=== PATIENT | female | born 1935 | race Hispanic/Latino ===

== ENCOUNTER 2017-07-26 12:12 | Emergency (ER) | payer MEDICARE ==
[2017-07-26] MEDS ORDERED: ASPIRIN PO ONE (12:22)
[2017-07-26 13:12] LABS: Basophils % (Auto) 0.7 % (0.0-1.8); Eosinophils % (Auto) 0.5 % (0.0-4.3); Hematocrit 44.9 % (30.3-42.9); Hemoglobin 14.7 gm/dl (10.1-14.3); Lymphocytes # (Auto) 1.5 K/mm3 (1.2-5.4); Lymphocytes % (Auto) 22.1 % (13.4-35.0); Mean Corpuscular HGB Conc 33 % (30-34); Mean Corpuscular Hemoglobin 27 pg (28-32); Mean Corpuscular Volume 84 fl (79-97); Monocytes # (Auto) 0.5 K/mm3 (0.0-0.8); Monocytes % (Auto) 6.7 % (0.0-7.3); Platelet Count 196 K/mm3 (140-440); Red Blood Count 5.36 M/mm3 (3.65-5.03)
[2017-07-26 13:24] LABS: BUN/Creatinine Ratio 19; Blood Urea Nitrogen 13 mg/dL (7-17); Calcium 9.3 mg/dL (8.4-10.2); Hemolysis Index 8
[2017-07-26] MEDS ORDERED: ZOFRAN IV ONE (20:08)
[2017-07-26] MEDS ORDERED: NACL 0.9% 500 ML 500 ML IV ONE (20:08)
[2017-07-26] MEDS ORDERED: BENTYL IM ONE (20:08)
[2017-07-26] MEDS ORDERED: CARAFATE PO ONE (20:08)
--- NOTE | 2017-07-26 20:16 | Emergency Department Report ---
ED General Adult HPI - General Chief complaint: Nausea/Vomiting/Diarrhea Stated complaint: NAUSEA Time Seen by Provider: 07/26/17 19:49 Source: patient, RN notes reviewed Mode of arrival: Ambulatory Limitations: No Limitations - History of Present Illness Initial comments: This is an 82-year-old female who is previously unknown to this provider. Her primary care doctor is Dr. Burak Delatorre Past medical history includes hypothyroidism, cholecystectomy, hysterectomy. Patient presents to the ER with a complaint of weakness. Patient reports that for the past 3-4 days, she's been having nausea, dry heaving. Her symptoms started on Saturday. They're basically painless. She also describes 2 episodes of nonbloody, nonbilious diarrhea. She denies chest pain but admits to chest discomfort. Patient reports that she thinks that she has a "stomach bug." There are no DVT or pulmonary embolus risk factors. No recent aspirin use. No recent cocaine use. Patient reports that she is spitting up" some yellow stuff" and having some "yellow diarrhea." To me she denies chest pain, diaphoresis, shortness of breath. -: Gradual Location: chest, abdomen Radiation: abdomen Quality: aching Consistency: intermittent Improves with: none Worsens with: none Associated Symptoms: cough, loss of appetite, malaise, nausea/vomiting, weakness. denies: confusion, diaphoresis, fever/chills, headaches, rash, seizure, shortness of breath, syncope - Related Data Previous Rx's Medication Instructions Recorded Last Taken Type Acetaminophen [Tylenol Arthritis] 650 mg PO Q6HR PRN #30 tablet.er 07/26/17 Unknown Rx Dicyclomine [Bentyl] 10 mg PO QID PRN #20 capsule 07/26/17 Unknown Rx Ondansetron [Zofran Odt] 4 mg PO Q8HR PRN #20 tab.rapdis 07/26/17 Unknown Rx Allergies Allergy/AdvReac Type Severity Reaction Status Date / Time Sulfa (Sulfonamide Allergy Rash Verified 07/26/17 12:20 Antibiotics) metronidazole [From Flagyl] AdvReac Unknown Verified 07/26/17 12:21 ED Review of Systems ROS: Stated complaint: NAUSEA Other details as noted in HPI Comment: All other systems reviewed and negative ED Past Medical Hx - Past Medical History Additional medical history: Diverticulitis - Surgical History Hx Cholecystectomy: Yes - Social History Smoking Status: Never Smoker Substance Use Type: None - Medications Home Medications: Home Medications Medication Instructions Recorded Confirmed Last Taken Type Acetaminophen [Tylenol Arthritis] 650 mg PO Q6HR PRN #30 tablet.er 07/26/17 Unknown Rx Dicyclomine [Bentyl] 10 mg PO QID PRN #20 capsule 07/26/17 Unknown Rx Ondansetron [Zofran Odt] 4 mg PO Q8HR PRN #20 tab.rapdis 07/26/17 Unknown Rx ED Physical Exam - General Limitations: No Limitations General appearance: alert, in no apparent distress - Head Head exam: Present: atraumatic, normocephalic - Eye Eye exam: Present: normal appearance, EOMI. Absent: nystagmus - ENT ENT exam: Present: normal exam, normal orophraynx, mucous membranes moist, normal external ear exam - Neck Neck exam: Present: normal inspection, full ROM - Respiratory Respiratory exam: Present: normal lung sounds bilaterally. Absent: respiratory distress, chest wall tenderness - Cardiovascular Cardiovascular Exam: Present: normal rhythm, bradycardia, normal heart sounds. Absent: systolic murmur, diastolic murmur, rubs, gallop - GI/Abdominal GI/Abdominal exam: Present: soft, normal bowel sounds. Absent: distended, tenderness, guarding, rebound, rigid, pulsatile mass - Extremities Exam Extremities exam: Present: normal inspection, full ROM, normal capillary refill. Absent: pedal edema, joint swelling, calf tenderness - Back Exam Back exam: Present: normal inspection, full ROM. Absent: tenderness, CVA tenderness (R), paraspinal tenderness, vertebral tenderness - Neurological Exam Neurological exam: Present: alert, oriented X3, CN II-XII intact, normal gait, other (Extraocular movements intact. Tongue midline. No facial droop. Facial sensation intact to light touch in the V1, V2, V3 distribution bilaterally. 5 and 5 strength in 4 extremities.. Sensation is intact to light touch in 4 extremities.). Absent: motor sensory deficit - Psychiatric Psychiatric exam: Present: normal affect, normal mood - Skin Skin exam: Present: warm, dry, intact, normal color. Absent: rash ED Course Vital Signs 07/26/17 07/26/17 07/26/17 12:16 16:07 16:16 Temperature 97.8 F Pulse Rate 72 86 89 Respiratory 18 19 16 Rate Blood Pressure 152/65 123/81 123/81 O2 Sat by Pulse 98 93 95 Oximetry 07/26/17 07/26/17 07/26/17 16:30 16:46 17:00 Temperature Pulse Rate 87 90 93 H Respiratory 16 18 15 Rate Blood Pressure 123/81 123/81 123/81 O2 Sat by Pulse 97 96 96 Oximetry 07/26/17 07/26/17 07/26/17 17:16 17:30 17:46 Temperature Pulse Rate 86 85 87 Respiratory 17 18 11 L Rate Blood Pressure 147/85 147/85 147/85 O2 Sat by Pulse 98 96 97 Oximetry 07/26/17 07/26/17 07/26/17 18:00 18:16 18:30 Temperature Pulse Rate 90 87 82 Respiratory 14 17 18 Rate Blood Pressure 147/85 113/74 113/74 O2 Sat by Pulse 98 98 96 Oximetry 07/26/17 07/26/17 07/26/17 19:52 20:00 20:01 Temperature Pulse Rate 48 L 59 L Respiratory 12 13 18 Rate Blood Pressure 113/74 113/74 O2 Sat by Pulse 99 100 98 Oximetry 07/26/17 07/26/17 07/26/17 20:16 20:56 21:00 Temperature Pulse Rate 59 L Respiratory 13 Rate Blood Pressure 160/47 160/47 160/47 O2 Sat by Pulse 99 99 99 Oximetry 07/26/17 07/26/17 21:16 21:30 Temperature Pulse Rate Respiratory Rate Blood Pressure 160/47 160/47 O2 Sat by Pulse 100 100 Oximetry - Reevaluation(s) Reevaluation #1: 07/26/17 21:12 Differential diagnosis, including but not limited to: Enteritis, pneumonia, urinary tract infection, intracranial hemorrhage, pulmonary embolus, acute coronary syndrome, pancreatitis, obstruction, enteritis, colitis, diverticulitis Aspirin and plan: 82-year-old female, troponin negative 3, unremarkable EKG, no pulmonary embolus or DVT risk factors, low risk by well's criteria, low risk by Godoy's score, low risk by LYNNETTE score with multiple nonspecific symptoms. She is afebrile with reassuring vital signs, has a normal neurologic examination. Laboratory studies so far unremarkable with the exception of hemoconcentration, dehydration. She does not offer obstructive or irritative urinary symptoms. She will be treated supportively. CT scan of the chest, abdomen, pelvis pending. CT scan of the brain is pending. We will reassess. Reevaluation #2: 07/26/17 21:45 CT scan demonstrates nonspecific bony lesions. No acute surgical processes noted. Pneumonia and/or pulmonary embolus not noted. No signs remained stable , patient walks with a steady gait. The patient will be given copies of her CT scan reports, and she should follow-up with her outpatient primary care doctor for further evaluation to exclude cancer, tumor, malignancy. ED Medical Decision Making - Lab Data Result diagrams: 07/26/17 13:01 07/26/17 13:01 Vital Signs 07/26/17 07/26/17 12:16 20:01 Temperature 97.8 F Pulse Rate 72 Respiratory 18 18 Rate Blood Pressure 152/65 O2 Sat by Pulse 98 98 Oximetry Lab Results 07/26/17 07/26/17 07/26/17 Range/Units 13:01 13:01 15:24 WBC 6.8 (4.5-11.0) K/mm3 RBC 5.36 H (3.65-5.03) M/mm3 Hgb 14.7 H (10.1-14.3) gm/dl Hct 44.9 H (30.3-42.9) % MCV 84 (79-97) fl MCH 27 L (28-32) pg MCHC 33 (30-34) % RDW 14.0 (13.2-15.2) % Plt Count 196 (140-440) K/mm3 Lymph % (Auto) 22.1 (13.4-35.0) % [place] % (Auto) 6.7 (0.0-7.3) % Eos % (Auto) 0.5 (0.0-4.3) % Baso % (Auto) 0.7 (0.0-1.8) % Lymph # 1.5 (1.2-5.4) K/mm3 [place] # 0.5 (0.0-0.8) K/mm3 Eos # 0.0 (0.0-0.4) K/mm3 Baso # 0.0 (0.0-0.1) K/mm3 Seg Neutrophils % 70.0 (40.0-70.0) % Seg Neutrophils # 4.7 (1.8-7.7) K/mm3 Sodium 140 (137-145) mmol/L Potassium 4.1 (3.6-5.0) mmol/L Chloride 100.7 (98-107) mmol/L Carbon Dioxide 23 (22-30) mmol/L Anion Gap 20 mmol/L BUN 13 (7-17) mg/dL Creatinine 0.7 (0.7-1.2) mg/dL Estimated GFR > 60 ml/min BUN/Creatinine Ratio 19 % Glucose 117 H (65-100) mg/dL Calcium 9.3 (8.4-10.2) mg/dL Troponin T < 0.010 < 0.010 (0.00-0.029) ng/mL Urine Color (Yellow) Urine Turbidity (Clear) Urine pH (5.0-7.0) Ur Specific [place] (1.003-1.030) Urine Protein (Negative) mg/dL Urine Glucose (UA) (Negative) mg/dL Urine Ketones (Negative) mg/dL Urine Blood (Negative) Urine Nitrite (Negative) Urine Bilirubin (Negative) Urine Urobilinogen (<2.0) mg/dL Ur Leukocyte Esterase (Negative) Urine WBC (Auto) (0.0-6.0) /HPF Urine RBC (Auto) (0.0-6.0) /HPF U Epithel Cells (Auto) (0-13.0) /HPF Urine Bacteria (Auto) (Negative) /HPF Ur Transition Epith Cell /HPF Urine Mucus /HPF 07/26/17 07/26/17 Range/Units 18:51 19:55 WBC (4.5-11.0) K/mm3 RBC (3.65-5.03) M/mm3 Hgb (10.1-14.3) gm/dl Hct (30.3-42.9) % MCV (79-97) fl MCH (28-32) pg MCHC (30-34) % RDW (13.2-15.2) % Plt Count (140-440) K/mm3 Lymph % (Auto) (13.4-35.0) % [place] % (Auto) (0.0-7.3) % Eos % (Auto) (0.0-4.3) % Baso % (Auto) (0.0-1.8) % Lymph # (1.2-5.4) K/mm3 [place] # (0.0-0.8) K/mm3 Eos # (0.0-0.4) K/mm3 Baso # (0.0-0.1) K/mm3 Seg Neutrophils % (40.0-70.0) % Seg Neutrophils # (1.8-7.7) K/mm3 Sodium (137-145) mmol/L Potassium (3.6-5.0) mmol/L Chloride (98-107) mmol/L Carbon Dioxide (22-30) mmol/L Anion Gap mmol/L BUN (7-17) mg/dL Creatinine (0.7-1.2) mg/dL Estimated GFR ml/min BUN/Creatinine Ratio % Glucose (65-100) mg/dL Calcium (8.4-10.2) mg/dL Troponin T < 0.010 (0.00-0.029) ng/mL Urine Color Yellow (Yellow) Urine Turbidity Clear (Clear) Urine pH 5.0 (5.0-7.0) Ur Specific [place] 1.023 (1.003-1.030) Urine Protein <15 mg/dl (Negative) mg/dL Urine Glucose (UA) Neg (Negative) mg/dL Urine Ketones 80 (Negative) mg/dL Urine Blood Neg (Negative) Urine Nitrite Neg (Negative) Urine Bilirubin Neg (Negative) Urine Urobilinogen < 2.0 (<2.0) mg/dL Ur Leukocyte Esterase Mod (Negative) Urine WBC (Auto) 6.0 (0.0-6.0) /HPF Urine RBC (Auto) 8.0 (0.0-6.0) /HPF U Epithel Cells (Auto) 5.0 (0-13.0) /HPF Urine Bacteria (Auto) 1+ (Negative) /HPF Ur Transition Epith Cell 1 /HPF Urine Mucus 3+ /HPF - EKG Data -: EKG Interpreted by Me EKG shows normal: sinus rhythm Rate: bradycardia - EKG Data When compared to previous EKG there are: previous EKG unavailable 07/26/17 21:12 EKG #1 demonstrates sinus bradycardia, borderline left axis deviation, not morphologically consistent with STEMI. Repeat EKG is unchanged. Demonstrates persistent sinus bradycardia. - Radiology Data Radiology results: pending Critical care attestation.: If time is entered above; I have spent that time in minutes in the direct care of this critically ill patient, excluding procedure time. ED Disposition Clinical Impression: History of nausea and vomiting Disposition: DC-01 TO HOME OR SELFCARE Is pt being admited?: No Does the pt Need Aspirin: No Condition: Good Instructions: Acute Nausea and Vomiting (ED) Additional Instructions: Take the medications as needed/directed. CT scan demonstrated numerous nonspecific findings which need to be followed up and addressed by her primary care doctor. Specific, the CT scan demonstrated bony lesions, suggestive of cancer, tumor, malignancy. Follow-up with her primary care doctor or hematology /oncology physician within the next 2-3 weeks. Follow-up with a technical services analyst within the next 1 week. Return to the ER right away with new pain, worsened pain, migration of pain, fevers, chills, lethargy, irritability, projectile vomiting, change in mental status, confusion, inability to tolerate liquid feeds. Referrals: CORBIN HOOPER MD [Primary Care Provider] - 3-5 Days BRITTNEY FLORIAN MD [Staff Physician] - 3-5 Days
[2017-07-26 20:27] LABS: Bacteria,Urine 1+ /HPF (Negative); Bilirubin,Urine NEG (Negative); Blood,Urine NEG (Negative); Color,Urine Yellow (Yellow); Mucus,Urine 3+ /HPF; Protein,Urine <15 mg/dL mg/dL (Negative); Urobilinogen,Urine < 2.0 mg/dL (<2.0)
--- NOTE | 2017-07-26 21:14 | Cat Scan Report ---
FINAL REPORT PROCEDURE: CT ANGIO CHEST TECHNIQUE: Computerized tomographic angiography of the chest was performed after the IV injection of iodinated nonionic contrast including image processing. The image data was postprocessed using 2-dimensional multiplanar reformatted (MPR) and 3-dimensional (MIP and/or volume rendered) techniques. HISTORY: cp dizzy near syncope COMPARISON: No prior studies are available for comparison. FINDINGS: Bilateral pulmonary arteries and their branches demonstrate normal opacification without filling defects. Bilateral lungs and pleural spaces are clear. Aorta is of normal caliber without evidence of dissection or aneurysm formation. Benign-appearing calcifications are noted in the thyroid. Hilar structures are within normal limits. A mildly enlarged lymph node measuring 1.2 centimeters in short axis is identified in the aortopulmonic window. There is diffusely increased bone density. A lytic lesion measuring 0.8 centimeters is noted involving T8 vertebral body. IMPRESSION: No evidence of pulmonary embolism No acute pulmonary process Mild degree mediastinal lymphadenopathy Diffusely increased bone density is suspicious for etiologies such as metastatic disease versus marrow replacing disorder. Clinical correlation is recommended. 0.8 centimeter lytic lesion involving T8 vertebral body may be further evaluated using a bone scan to rule out a metastatic disease.
--- NOTE | 2017-07-26 21:15 | Cat Scan Report ---
FINAL REPORT PROCEDURE: CT HEAD/BRAIN WO CON TECHNIQUE: Computerized tomography of the head was performed without contrast material. HISTORY: dizzy near syncope COMPARISON: No prior studies are available for comparison. FINDINGS: Skull and scalp: Normal. Paranasal sinuses: Normal. Ventricles and subarachnoid spaces: Are prominent consistent with cerebral atrophy appropriate for patient's age.. Cerebrum: No evidence of hemorrhage, acute infarction or mass . Cerebellum and brainstem: No evidence of hemorrhage, acute infarction or mass. Vasculature: Normal. Comments: None. IMPRESSION: No acute intracranial abnormality
[2017-07-26 21:31] LABS: Alanine Aminotransferase 17 units/L (7-56); Albumin 4.3 g/dL (3.9-5); Lipase 23 units/L (13-60)
[2017-07-26 21:32] LABS: Bilirubin,Direct < 0.2 mg/dL (0-0.2)
[2017-07-26 21:39] VITALS: BP 160/47
--- NOTE | 2017-07-26 21:42 | Cat Scan Report ---
FINAL REPORT PROCEDURE: CT ABDOMEN PELVIS W CON TECHNIQUE: Computerized axial tomography of the abdomen and pelvis was performed after the IV injection of iodinated nonionic contrast. HISTORY: abd pain n/n/d COMPARISON: No prior studies are available for comparison. FINDINGS: Liver, spleen, pancreas and right adrenal gland are within normal limits. Left adrenal demonstrates a hypo enhancing nodule measuring 9 x 7 millimeters. Well-defined simple cysts are noted in the left kidney largest measuring 2.8 centimeters located in the midpole left kidney. There are 2 small calculi in the lower portion left kidney measuring about 3-4 millimeters without any obstructive uropathy. Aorta is of normal caliber. There is no free fluid or free air. Status post cholecystectomy. Small bowel loops are within normal limits. Multiple colonic diverticula are noted without evidence of diverticulitis. Appendix is normal. 1.1 centimeter lytic lesion is noted in the left hemisacrum. Moderate degree degenerative changes are noted involving the lumbar spine. There is ink diffusely increased density of the bony structures. IMPRESSION: No acute intra-abdominal or pelvic pathology A small hypo enhancing nodule is noted in the left adrenal. This is a nonspecific nodule and may be further evaluated using MRI. Small nonobstructive left renal calculi Diffusely increased bone density may represent metastatic disease versus marrow infiltrative disorder. 1.1 centimeter lytic lesion is noted in the left hemisacrum. Bone scan may be recommended.
== END 2017-07-26 23:02 | disposition home or self-care (01) ==
LOC: ED 12:12
DX: R11.2 Nausea with vomiting, unspecified (principal); R19.7 Diarrhea, unspecified; R53.81 Other malaise; R63.0 Anorexia; R05 Cough; E03.9 Hypothyroidism, unspecified; R10.9 Unspecified abdominal pain; Z90.710 Acquired absence of both cervix and uterus; Z90.49 Acquired absence of other specified parts of digestive tract; Z88.2 Allergy status to sulfonamides; Z88.8 Allergy status to other drugs, medicaments and biological substances
CPT/HCPCS: 36415; 70450; 71275; 74177; 80048; 80074; 81001; 83690; 84484; 85025; 93005; 93010; 96374; 99284; J0500; J2405; J7040; Q9967

== ENCOUNTER 2018-05-23 09:38 | Emergency (ER) | payer MEDICARE ==
--- NOTE | 2018-05-23 10:50 | Emergency Department Report ---
HPI - General Chief Complaint: Dyspnea/Respdistress Time Seen by Provider: 05/23/18 10:25 - HPI HPI: 82-year-old female presents to the emergency department from home with a complaint of some dizziness, nausea without vomiting, shortness of breath, that started while the patient was taking a shower this morning. She says "my arms felt very heavy and weak and I felt like I was going to pass out" but she did not have any syncopal episodes. She has a past medical history of hypothyroidism. Her primary care physician is a Dr. Bell. She denies any headache, fever, vision change, slurred speech, chest pain, or any other acute process. No recent travel or sick contacts at home. ED Past Medical Hx - Past Medical History Additional medical history: Diverticulitis, hypothyroidsm - Surgical History Hx Cholecystectomy: Yes - Social History Smoking Status: Never Smoker Substance Use Type: None - Medications Home Medications: Home Medications Medication Instructions Recorded Confirmed Last Taken Type Acetaminophen [Tylenol Arthritis] 650 mg PO Q6HR PRN #30 tablet.er 07/26/17 Unknown Rx Dicyclomine [Bentyl] 10 mg PO QID PRN #20 capsule 07/26/17 Unknown Rx Ondansetron [Zofran Odt] 4 mg PO Q8HR PRN #20 tab.rapdis 07/26/17 Unknown Rx ED Review of Systems ROS: Stated complaint: N/V Other details as noted in HPI Constitutional: weakness. denies: fever Eyes: denies: eye pain, vision change ENT: denies: ear pain, throat pain Respiratory: denies: cough, shortness of breath Cardiovascular: denies: chest pain, palpitations Gastrointestinal: nausea. denies: abdominal pain, vomiting Genitourinary: denies: dysuria, discharge Musculoskeletal: denies: back pain, arthralgia Skin: denies: rash, change in color Neurological: weakness, other (dizziness) Physical Exam - Physical Exam Vital Signs: Vital Signs 05/23/18 10:03 Temperature 97.7 F Pulse Rate 64 Respiratory 12 Rate Blood Pressure 170/61 [Right] O2 Sat by Pulse 98 Oximetry Physical Exam: GENERAL: The patient is well-developed well-nourished. HEENT: Normocephalic. Atraumatic. Patient has moist mucous membranes. EYES: Extraocular motions are intact. Pupils are equal and reactive to light bilaterally. There is some fatigable horizontal nystagmus. NECK: Supple. Trachea is midline. CHEST/LUNGS: Clear to auscultation. There is no respiratory distress noted. HEART/CARDIOVASCULAR: Regular. There is no tachycardia. There is no obvious murmur. ABDOMEN: Abdomen is soft, nontender. Patient has normal bowel sounds. There is no abdominal distention. SKIN: Skin is warm and dry. NEURO: The patient is awake, alert, and oriented. The patient is cooperative. The patient has no focal neurologic deficits. The patient has normal speech. Cranial nerves II through XII grossly intact. No pronator drift. No dysmetria. No facial asymmetry. MUSCULOSKELETAL: There is no tenderness or deformity. There is no limitation range of motion. There is no evidence of acute injury. ED Course Vital Signs 05/23/18 10:03 Temperature 97.7 F Pulse Rate 64 Respiratory 12 Rate Blood Pressure 170/61 [Right] O2 Sat by Pulse 98 Oximetry ED Medical Decision Making - Lab Data Result diagrams: 05/23/18 10:42 05/23/18 10:42 - EKG Data -: EKG Interpreted by Al EKG shows normal: sinus rhythm, axis, intervals, QRS complexes (LVH), ST-T waves Rate: bradycardia (57 bpm) - EKG Data When compared to previous EKG there are: previous EKG unavailable Interpretation: LVH - Radiology Data Radiology results: report reviewed CT HEAD WITHOUT CONTRAST: HISTORY: Dizziness. TECHNIQUE: Sequential 2.5mm CT images. COMPARISON: 07/26/17. FINDINGS: Cerebral Parenchyma: Within normal limits. Cerebellum: Within normal limits. Brainstem: Within normal limits. Ventricles: Normal. Sella: Normal. Extra-axial spaces: Normal. Basal Cisterns: Normal. Intracranial Hemorrhage: None. Midline Shift: None. Calvarium: Normal. Sinuses: Normal. Mastoid Air Cells: Normal. Visualized Orbits: Normal. IMPRESSION: Cranial CT scan within normal limits. Transcribed By: TTR Dictated By: KATHI CARRION JR, MD Electronically Authenticated By: KATHI CARRION JR, MD Signed Date/Time: 05/23/18 1221 CTA HEAD: HISTORY: Dizziness. TECHNIQUE: Helical CT images after IV contrast with 0.625mm reformations. Sagittal and coronal reformats. Rotational MIP images. 3D volume rendering technique. FINDINGS: The arterial structures of the anterior and posterior circulations are patent throughout. No evidence for stenosis, occlusion or aneurysm. IMPRESSION: Unremarkable CTA head. Transcribed By: BRYAN Dictated By: KATHI CARRION JR, MD Electronically Authenticated By: KATHI CARRION JR, MD Signed Date/Time: 05/23/18 1503 CTA NECK: HISTORY: Dizziness. TECHNIQUE: Helical CT following IV contrast. Sagittal and coronal reformatted images. 3D volume rendering technique. Stenosis was calculated using NASCET criteria with the distal ICA being standard diameter. FINDINGS: The visualized aortic arch, innominate artery and proximal bilateral subclavian arteries are widely patent with less than 20% stenosis. Within the right carotid system: Less than 20% stenosis. Within the left carotid system: Less than 20% stenosis. There is moderate to severe stenosis at the origin of the left vertebral artery estimated at 75-80%. There is less than 20% stenosis throughout the right vertebral artery. The left vertebral artery appears to be dominant. 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 The clinical significance of this is unclear. No hemodynamically significant stenosis in the carotid systems. Transcribed By: BRYAN Dictated By: KATHI CARRION JR, MD Electronically Authenticated By: KATHI CARRION JR, MD Signed Date/Time: 05/23/18 1505 LUNG SCAN, VENTILATION AND PERFUSION: History: Short of breath. Technique: 5mci of Tc99m MAA was infused for the perfusion images. 15mci XE 133 gas was inhaled for the ventilatory images. Correlation is made with a chest x-ray dated 05/23/18. Findings: Inhalation of Xenon gas demonstrates a normal distribution of the activity throughout both lungs. The washout phases show mild retention of the radiotracer bilaterally suggesting COPD. After injection of Technetium 99m macroaggregated albumin gamma camera imaging of the lungs in multiple projections demonstrates normal pulmonary contours with a homogeneous distribution of activity. No focal areas of perfusion deficiency are identified. IMPRESSION: Low probability for pulmonary embolus. Transcribed By: TTR Dictated By: KATHI CARRION JR, MD Electronically Authenticated By: KATHI CARRION JR, MD Signed Date/Time: 05/23/18 1402 - Medical Decision Making This patient presents to the emergency department after having an episode this morning where she felt dizzy/lightheaded, felt like her arms were heavy, and felt like she was going to pass out. Since being in the emergency department she has been awake and alert without any signs of any focal, motor or sensory deficits and with intact cranial nerves. She was a 0 on the NIH stroke scale. She had a CT scan of the head without contrast that did not show any bleed, shift, mass or any acute process. Labs were mostly unremarkable except for a elevated and equivocal d-dimer. VQ scan was low probability for a pulmonary embolism. Patient had a CT scan with angiography of the head and neck. The CT angiography of the head was negative. CT angiography of the neck shows the left vertebral artery to be 75-80% stenosed. The patient says that her symptoms have not returned. However with this finding, her advanced age, and her previous symptoms, I recommended to the patient to be admitted for further evaluation and possible MRI. However the patient says that she is not interested in any further testing at this time and does not want to be admitted to the hospital. She understands that there still could be a chance that the patient had a CVA versus TIA or that this vertebral artery stenosis could be an issue. She understands that without further evaluation there is the chance for worsening or return of her symptoms, CVA, disability or even . The patient understands this and still would like to leave the emergency department at this time and has signed out AGAINST MEDICAL ADVICE. She is going to follow up with her primary care physician and understands that she can return at any time to the emergency department with return of her symptoms, if she changes her mind about further evaluation, ANY acute distress. - Differential Diagnosis CVA, TIA, hypoglycemia, electrolyte abnormalities Critical Care Time: No Critical care attestation.: If time is entered above; I have spent that time in minutes in the direct care of this critically ill patient, excluding procedure time. ED Disposition Clinical Impression: Near syncope, Dizziness Disposition: [id number] LEFT AGAINST MED ADVICE Is pt being admited?: No Condition: Stable Instructions: Near Syncope (ED), Lightheadedness (ED), Dizziness (ED) Additional Instructions: Please return to the emergency department immediately if you change your mind about admission and further evaluation, he have any further episodes of dizziness/weakness or nearly passing out, or with any acute distress. Referrals: ANKUR HOWELL MD [Primary Care Provider] - [place] Forms: AMA Form Time of Disposition: 15:26 - Assessment Assessment Interval: Baseline - Level of Consciousness 1a. Level of Consciousness: alert/keenly responsive - LOC Questions 1b. LOC Questions: answers both correctly - LOC Command 1c. LOC Commands: performs tasks correctly - Best Gaze 2. Best Gaze: normal - Visual 3. Visual: no visual loss - Facial Palsy 4. Facial Palsy: normal symmetrical movement - Motor Arm 5a. Motor Arm Left: no drift 5b. Motor Arm Right: no drift - Motor Leg 6a. Motor Leg Left: no drift 6b. Motor Leg Right: no drift - Limb Ataxia 7. Limb Ataxia: absent - Sensory 8. Sensory: normal - Best Language 9. Best Language: no aphasia - Dysarthria 10. Dysarthria: normal - Extinction and Inattention 11. Extinction/Inattention: no abnormality - Scoring Total Score: 0 Stroke Severity: No Stroke Symptoms
[2018-05-23 10:53] LABS: Basophils % (Auto) 0.5 % (0.0-1.8); Eosinophils % (Auto) 0.3 % (0.0-4.3); Hematocrit 44.4 % (30.3-42.9); Lymphocytes # (Auto) 0.7 K/mm3 (1.2-5.4); Lymphocytes % (Auto) 8.7 % (13.4-35.0); Mean Corpuscular HGB Conc 34 % (30-34); Mean Corpuscular Volume 86 fl (79-97); Monocytes # (Auto) 0.4 K/mm3 (0.0-0.8); Monocytes % (Auto) 4.9 % (0.0-7.3); Platelet Count 174 K/mm3 (140-440); Red Blood Count 5.14 M/mm3 (3.65-5.03); Red Cell Distribution Width 14.1 % (13.2-15.2)
--- NOTE | 2018-05-23 11:01 | XRay Report ---
AP CHEST: HISTORY: Dyspnea The lungs are mildly hyperinflated but clear. No pleural effusion or pneumothorax. Normal heart and mediastinal structures. The bony thorax is grossly intact. IMPRESSION: Mild hyperinflation. No acute process identified.
[2018-05-23 11:03] LABS: INR 1.03 (0.87-1.13)
[2018-05-23 11:04] LABS: Partial Thromboplastin Time 27.6 Sec. (24.2-36.6)
[2018-05-23 11:24] LABS: Alanine Aminotransferase 13 units/L (7-56); Albumin 4.1 g/dL (3.9-5); BUN/Creatinine Ratio 18; Blood Urea Nitrogen 16 mg/dL (7-17); Calcium 9.3 mg/dL (8.4-10.2); Hemolysis Index 6
[2018-05-23 12:25] LABS: Bilirubin,Urine NEG (Negative); Blood,Urine NEG (Negative); Color,Urine Yellow (Yellow); Mucus,Urine FEW /HPF; Urobilinogen,Urine < 2.0 mg/dL (<2.0)
--- NOTE | 2018-05-23 12:25 | Cat Scan Report ---
CT HEAD WITHOUT CONTRAST: HISTORY: Dizziness. TECHNIQUE: Sequential 2.5mm CT images. COMPARISON: 07/26/17. FINDINGS: Cerebral Parenchyma: Within normal limits. Cerebellum: Within normal limits. Brainstem: Within normal limits. Ventricles: Normal. Sella: Normal. Extra-axial spaces: Normal. Basal Cisterns: Normal. Intracranial Hemorrhage: None. Midline Shift: None. Calvarium: Normal. Sinuses: Normal. Mastoid Air Cells: Normal. Visualized Orbits: Normal. IMPRESSION: Cranial CT scan within normal limits.
--- NOTE | 2018-05-23 14:08 | Nuclear Medicine Report ---
LUNG SCAN, VENTILATION AND PERFUSION: History: Short of breath. Technique: 5mci of Tc99m MAA was infused for the perfusion images. 15mci XE 133 gas was inhaled for the ventilatory images. Correlation is made with a chest x-ray dated 05/23/18. Findings: Inhalation of Xenon gas demonstrates a normal distribution of the activity throughout both lungs. The washout phases show mild retention of the radiotracer bilaterally suggesting COPD. After injection of Technetium 99m macroaggregated albumin gamma camera imaging of the lungs in multiple projections demonstrates normal pulmonary contours with a homogeneous distribution of activity. No focal areas of perfusion deficiency are identified. IMPRESSION: Low probability for pulmonary embolus.
--- NOTE | 2018-05-23 15:07 | Cat Scan Report ---
CTA HEAD: HISTORY: Dizziness. TECHNIQUE: Helical CT images after IV contrast with 0.625mm reformations. Sagittal and coronal reformats. Rotational MIP images. 3D volume rendering technique. FINDINGS: The arterial structures of the anterior and posterior circulations are patent throughout. No evidence for stenosis, occlusion or aneurysm. IMPRESSION: Unremarkable CTA head.
--- NOTE | 2018-05-23 15:09 | Cat Scan Report ---
CTA NECK: HISTORY: Dizziness. TECHNIQUE: Helical CT following IV contrast. Sagittal and coronal reformatted images. 3D volume rendering technique. Stenosis was calculated using NASCET criteria with the distal ICA being standard diameter. FINDINGS: The visualized aortic arch, innominate artery and proximal bilateral subclavian arteries are widely patent with less than 20% stenosis. Within the right carotid system: Less than 20% stenosis. Within the left carotid system: Less than 20% stenosis. There is moderate to severe stenosis at the origin of the left vertebral artery estimated at 75-80%. There is less than 20% stenosis throughout the right vertebral artery. The left vertebral artery appears to be dominant. 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 The clinical significance of this is unclear. No hemodynamically significant stenosis in the carotid systems.
[2018-05-23 16:05] VITALS: BP 125/79
== END 2018-05-23 16:01 | disposition left against medical advice (07) ==
LOC: ED 09:38
DX: R55 Syncope and collapse (principal); R42 Dizziness and giddiness; E03.9 Hypothyroidism, unspecified; Z88.2 Allergy status to sulfonamides; Z88.8 Allergy status to other drugs, medicaments and biological substances; Z90.49 Acquired absence of other specified parts of digestive tract
CPT/HCPCS: 36415; 70450; 70496; 70498; 71045; 78582; 80053; 81001; 83880; 84443; 84484; 85025; 85379; 85610; 85730; 93005; 93010; 99285; A9540; A9558; Q9967